=== PATIENT | male | born 1945 | race Caucasian/White ===

== ENCOUNTER 2021-08-06 22:22 | Observation (INO) | payer MEDICARE, OTHER ==
[~2021-08-06] VITALS: Ht 176.5 cm; Wt 90.0 kg
--- NOTE | 2021-08-06 22:28 | NUR ---
PT AMBULATORY TO ROOM 10 FOR TRIAGE. EKG COMPLETED.
[2021-08-06 23:17] LABS: HEMATOCRIT 35.9 % (39.0-50.0); HEMOGLOBIN 12.4 g/dl (14.0-18.0); IMMATURE GRANULOCYTES 0.2 % (0.0-5.0); MEAN CELL VOLUME 93.5 fL CALC (80.0-100.0); MEAN CORPUSCULAR HGB 32.3 pG CALC (26.0-32.0); MEAN CORPUSCULAR HGB CONC 34.5 g/dL CAL (32.0-36.0); NEUT# 2.45 thou/uL (1.82-7.42); RED BLOOD COUNT 3.84 mill/uL (4.70-6.10); RED CELL DISTRI WIDTH 13.1 % (11.5-15.5)
[2021-08-06 23:33] LABS: ALBUMIN 3.5 g/dL (3.2-5.0); ALKALINE PHOSPHATASE 84 u/l (38-126); ANION GAP 13 (6-22 (CALC)); BILIRUBIN, TOTAL 0.4 mg/dL (0.0-1.4); BUN 18 mg/dL (8-23); BUN/CREATININE RATIO 16 (12-20 (CALC)); CARBON DIOXIDE 23 mmol/l (22-30); CHLORIDE 104 mmol/l (95-108); CREATININE 1.2 mg/dL (0.7-1.3); GFR 59 ML/MIN (>=60 (CALC)); GFR FOR AFR.AMER. > 60 ML/MIN (>=60 (CALC)); SGOT/AST 47 u/l (19-48); SODIUM 136 mmol/l (137-146); TOTAL PROTEIN 6.1 g/dL (6.3-8.2)
[2021-08-06 23:46] LABS: MYOGLOBIN 75 ng/mL (0 - 121)
[2021-08-07 00:04] LABS: TSH, 3RD GENERATION 1.73 uIU/mL (0.47 - 4.68)
--- NOTE | 2021-08-07 00:10 | NUR ---
DR KOO AT BEDSIDE TO DISCUSS POC
--- NOTE | 2021-08-07 03:08 | NUR ---
pt resting in bed with eyes closed; no s/s of distress noted; call light within reach
--- NOTE | 2021-08-07 04:00 | NUR ---
PT RESTING ON BED WITH EYES CLOSED; CALL LIGHT WITHIN REACH
[2021-08-07 06:06] LABS: HEMATOCRIT 38.4 % (39.0-50.0); HEMOGLOBIN 12.8 g/dl (14.0-18.0); MEAN CELL VOLUME 93.9 fL CALC (80.0-100.0); MEAN CORPUSCULAR HGB 31.3 pG CALC (26.0-32.0); MEAN CORPUSCULAR HGB CONC 33.3 g/dL CAL (32.0-36.0); RED BLOOD COUNT 4.09 mill/uL (4.70-6.10); RED CELL DISTRI WIDTH 13.1 % (11.5-15.5)
[2021-08-07 06:36] LABS: ANION GAP 8 (6-22 (CALC)); BUN 18 mg/dL (8-23); BUN/CREATININE RATIO 17 (12-20 (CALC)); CALCULATED LDLCHOLESTEROL 39 mg/dL (62-129 (CALC)); CARBON DIOXIDE 26 mmol/l (22-30); CHLORIDE 108 mmol/l (95-108); CHOLESTEROL HDL RATIO 1.6 (<4.4 (CALC)); GFR > 60 ML/MIN (>=60 (CALC)); GFR FOR AFR.AMER. > 60 ML/MIN (>=60 (CALC)); HDL CHOLESTEROL 76 mg/dL (>=40); MAGNESIUM 2.4 mg/dL (1.6-2.3); POTASSIUM 4.3 mmol/l (3.5-5.1); SODIUM 137 mmol/l (137-146); TOTAL CHOLESTEROL 125 mg/dl (0-199); TOTAL TRIGLYCERIDES 48 mg/dl (30-149); VLDL CHOLESTROL 10 mg/dl (0-38 (CALC))
[2021-08-07 08:09] VITALS: BP 117/64
--- NOTE | 2021-08-07 09:48 | NUR ---
REPORT RECEIVED FOR TRANSITION OF CARE.
[2021-08-07] MEDS ORDERED: LIPITOR80 M1 PO (10:03)
[2021-08-07] MEDS ORDERED: TAMSULOSIN0.4 MG PO (10:03)
[2021-08-07] MEDS ORDERED: PROSCAR5 MG PO (10:04)
[2021-08-07] MEDS ORDERED: EYE VITAMINS PO (10:05)
[2021-08-07] MEDS ORDERED: LOPRESSOR25 MG PO (10:05)
[2021-08-07] MEDS ORDERED: ASPIRIN LOW81 M1 PO (10:05)
[2021-08-07] MEDS ORDERED: FLONASE AL50 MCG/ACT (10:06)
[2021-08-07] MEDS ORDERED: MULTI VIT PO (10:06)
[2021-08-07] MEDS ORDERED: B COMPLE2 PO (10:06)
[2021-08-07] MEDS ORDERED: ZYRTEC10 MG PO (10:07)
[2021-08-07] MEDS ORDERED: NITROGLYCERIN0.4 MG (10:07)
--- NOTE | 2021-08-07 10:48 | NUR ---
PT UP TO BATHROOM AMBULATORY WITH STEADY GAIT IN ED
--- NOTE | 2021-08-07 11:24 | NUR ---
PT ADVISED OF WAIT TIME AND DISCHARGE BEING WORKED ON AT THIS TIME.
--- NOTE | 2021-08-07 12:15 | NUR ---
DISCUSSED DC INSTRUCTIONS WITH PT AND INCLUDING FU WITH PCP AND CARDIOLOGY IN THE NEXT FEW DAYS. PT PLEASANT AND COOPERATIVE, DECLINES WC , LEAVES AMBULATORY WITH IN NO DISTRESS, GAIT STEADY
== END 2021-08-07 11:52 | disposition home or self-care (01) ==
LOC: ED 22:22 → ED-I 23:55 → ED 08-07 00:09 → ED-I 08-07 00:10
PROVIDERS: Emergency Medicine; ADMIT Hospitalist; ATTEND Hospitalist
DX: R07.9 Chest pain, unspecified (principal); R68.84 Jaw pain; I25.10 Atherosclerotic heart disease of native coronary artery without angina pectoris; I47.1 Supraventricular tachycardia; E78.00 Pure hypercholesterolemia, unspecified; I25.2 Old myocardial infarction; Z95.5 Presence of coronary angioplasty implant and graft; Z20.822 Contact with and (suspected) exposure to COVID-19